=== PATIENT | female | born 1995 | race Caucasian/White ===

== ENCOUNTER 2017-07-21 16:13 | Emergency (ER) | payer BC ==
[~2017-07-21] VITALS: Ht 162.6 cm; Wt 79.9 kg
[~2017-07-21 16:13] MED LIST: BACTRIM,SEPT1 TABLET PO; PYRIDIUM100 MG PO
[2017-07-21 17:21] LABS: HEMATOCRIT 40.5 % (36.0-46.0); MCH 30.3 PG (29.0-34.0); MCHC 33.3 G/DL (30.0-36.0); MEAN PLAT.VOLUME 10.3 uM^3 (9.5-12.4); PLATELET COUNT 275 K/uL (156-360); RBC DIS.WIDTH-CV 12.1 % (11.8-14.6); RBC DIS.WIDTH-SD 40.6 % (39-53); RED BLOOD COUNT 4.45 M/uL (3.80-5.20); WHITE BLOOD COUNT 6.7 K/uL (4.1-10.2)
[2017-07-21 17:31] LABS: CHLORIDE 107 mEq/L (99-109); POTASSIUM 3.8 mEq/L (3.7-5.4); SODIUM 141 mEq/L (136-147)
[2017-07-21 17:32] LABS: ADD MIUA? YES; BILIRUBIN NEGATIVE; BLOOD LARGE; COLOR YELLOW ((YELLOW)); GLUCOSE (STRIP) NEGATIVE; KETONES NEGATIVE; LEUKOCYTES NEGATIVE; NITRITE NEGATIVE; PROTEIN (STRIP) NEGATIVE; SPECIFIC GRAVITY 1.018 (1.000-1.030); UROBILINOGEN 0.2 MG/DL (0.2-1.0)
[2017-07-21 17:33] LABS: GLUCOSE 98 mg/dL (70-99)
[2017-07-21 17:34] LABS: ANION GAP 10 MEQ/L (2-14)
[2017-07-21 17:35] LABS: TOTAL BILIRUBIN 0.3 mg/dL (0.0-1.0)
[2017-07-21 17:36] LABS: ALKALINE PHOSPHATASE 68 IU/L (3-129)
[2017-07-21 17:37] LABS: GFR ESTIMATE (CALCULATED) > 59 mL/min/
[2017-07-21 17:38] LABS: UREA NITROGEN (BUN) 14 mg/dL (9-23)
[2017-07-21 17:47] LABS: QUANTITATIVE HCG 17.1 MIU/ML
[2017-07-21 18:13] LABS: BACTERIA NONE SEEN /HPF; CASTS NONE SEEN /LPF; CRYSTALS NONE SEEN; EPITHELIAL CELLS RARE /HPF; MUCUS NONE SEEN /LPF; RED BLOOD CELLS TNTC /HPF (0-5); WHITE BLOOD CELLS NONE SEEN /HPF (0-5)
[2017-07-21 18:20] VITALS: BP 105/83
== END 2017-07-21 18:22 | disposition home or self-care (01) ==
LOC: EME 16:13
PROVIDERS: Nurse Practitioner Family
DX: O20.0 Threatened abortion (principal); Z3A.00 Weeks of gestation of pregnancy not specified; Z88.0 Allergy status to penicillin
CPT/HCPCS: 80053; 81003; 84702; 85027; 86900; 86901; 99281; 99284

== ENCOUNTER 2018-02-03 23:41 | Outpatient (CLI) | payer OTHER ==
[2018-02-04 00:21] VITALS: BP 117/69
[2018-02-04 00:48] LABS: APPEARANCE CLEAR ((CLEAR)); BILIRUBIN NEGATIVE; BLOOD SMALL; COLOR YELLOW ((YELLOW)); GLUCOSE (STRIP) 50; KETONES NEGATIVE; LEUKOCYTES NEGATIVE; NITRITE NEGATIVE; PROTEIN (STRIP) NEGATIVE; SPECIFIC GRAVITY 1.017 (1.000-1.030); UROBILINOGEN 0.2 MG/DL (0.2-1.0)
[2018-02-04 00:51] LABS: BACTERIA RARE /HPF; EPITHELIAL CELLS RARE /HPF; MUCUS TRACE /LPF; UCUL ADDED? NO; WHITE BLOOD CELLS 0-5 /HPF (0-5)
[2018-02-04 00:52] LABS: SOURCE SWAB
[2018-02-04] MEDS ORDERED: METRONIDAZOLE500 MG PO (01:04)
[2018-02-04 01:08] LABS: AMPHETAMINE NEGATIVE (500 ng/mL); BARBITURATES NEGATIVE (200 ng/mL); BENZODIAZEPINES NEGATIVE (150 ng/mL); BUPRENORPHINE NEGATIVE (10 ng/mL); COCAINE NEGATIVE (150 ng/mL); METHADONE NEGATIVE (200 ng/mL); METHAMPHETAMINE NEGATIVE (500 ng/mL); OPIATES (MORPHINE) NEGATIVE (100 ng/mL); OXYCODONE NEGATIVE (100 ng/mL); PHENCYCLIDINE NEGATIVE (25 ng/mL); PROPOXYPHENE NEGATIVE (300 ng/mL); THC CANNABINOIDS NEGATIVE (50 ng/mL); TRICYCLIC ANTIDEPRESSANTS NEGATIVE (300 ng/mL)
[2018-02-04 02:32] LABS: CANDIDA DNA PROBE NEGATIVE; GARDNERELLA DNA PROBE POSITIVE; TRICHOMONAS DNA PROBE NEGATIVE
== END 2018-02-04 02:25 | disposition home or self-care (01) ==
LOC: EME 23:41 → LDRP-OP 02-04 00:05 → 2WEST 02-04 00:06
PROVIDERS: Advanced Practice Midwife; Obstetrics & Gynecology Gynecology
DX: O20.9 Hemorrhage in early pregnancy, unspecified (principal); Z3A.19 19 weeks gestation of pregnancy; O26.892 Other specified pregnancy related conditions, second trimester; R10.9 Unspecified abdominal pain
CPT/HCPCS: 76817; 81003; 87480; 87491; 87510; 87591; 87660; G0378

== ENCOUNTER 2018-03-28 23:03 | Emergency (ER) | payer OTHER ==
[~2018-03-28] VITALS: Ht 162.6 cm; Wt 87.5 kg
[~2018-03-28 23:03] MED LIST changes: +METRONIDAZOLE500 MG PO
[2018-03-28 23:47] LABS: APPEARANCE CLOUDY ((CLEAR)); BILIRUBIN NEGATIVE; BLOOD LARGE; COLOR YELLOW ((YELLOW)); GLUCOSE (STRIP) NEGATIVE; KETONES 20; LEUKOCYTES LARGE; NITRITE NEGATIVE; PROTEIN (STRIP) 100; SPECIFIC GRAVITY 1.017 (1.000-1.030); UROBILINOGEN 0.2 MG/DL (0.2-1.0)
[2018-03-29 01:47] LABS: BACTERIA 1+ /HPF; EPITHELIAL CELLS 3+ /HPF; MUCUS NONE SEEN /LPF; UCUL ADDED? YES; WHITE BLOOD CELLS 30-40 /HPF (0-5)
[2018-03-29] MEDS ORDERED: KEFLEX500 MG PO (02:03)
[2018-03-29 02:27] VITALS: BP 119/74
== END 2018-03-29 02:28 | disposition home or self-care (01) ==
LOC: EME 23:03
DX: N39.0 Urinary tract infection, site not specified (principal); Z88.0 Allergy status to penicillin
CPT/HCPCS: 81003; 87077; 87086; 87186; 99281; 99284